=== PATIENT | male | born 1995 | race Caucasian/White ===

== ENCOUNTER 2018-01-24 22:02 | Emergency (ER) | payer OTHER ==
[2018-01-24] MEDS ORDERED: NS 2,000 ML IV ONE (22:06)
--- NOTE | 2018-01-24 22:09 | EDPHY ---
H & P Time Seen by Provider: 01/24/18 22:05 HPI/ROS: HPI CHIEF COMPLAINT: Presyncope HISTORY OF PRESENT ILLNESS: Patient 22-year-old male, is otherwise healthy with no significant medical history presents emergency room by EMS after he had almost a syncopal episode at a local restaurant. Patient reports that he went out last night drinking large amount of alcohol. He slept until noon. Did not have anything to drink or eat today. He went on a 3mi run. The patient went on a 3 mi 1, he did not eat or drink anything at all today. Around 7:00 p.m. He decided to take edible marijuana. He then went out to a restaurant and had a presyncopal episode he felt very lightheaded like he is going to pass out. He did not have a full syncopal episode. Denies chest pain or shortness of breath. Past Medical History: Denies significant medical history Past Surgical History: Denies significant surgical history Social History: [employer] student, endorses large amount of alcohol last night. Edible marijuana today. Family History: Noncontributory ROS REVIEW OF SYSTEMS: A comprehensive 10 point review of systems is otherwise negative aside from elements mentioned in the history of present illness. Exam Constitutional appears well nontoxic no acute distress, triage nursing summary reviewed, vital signs reviewed, awake/alert. Vital signs are stable. Eyes normal conjunctivae and sclera, EOMI, PERRLA. HENT normal inspection, atraumatic, moist mucus membranes, no epistaxis, neck supple/ no meningismus, no raccoon eyes. Respiratory clear to auscultation bilaterally, normal breath sounds, no respiratory distress, no wheezing. Cardiovascular rate normal, regular rhythm, no murmur, no edema, distal pulses normal. Gastrointestinal soft, non-tender, no rebound, no guarding, normal bowel sounds, no distension, no pulsatile mass. Genitourinary no CVA tenderness. Musculoskeletal no midline vertebral tenderness, full range of motion, no calf swelling, no tenderness of extremities, no meningismus, good pulses, neurovascularly intact. Skin pink, warm, & dry, no rash, skin atraumatic. Neurologic awake, alert and oriented x 3, AAOx3, moves all 4 extremities equally, motor intact, sensory intact, CN II-XII intact, normal cerebellar, normal vision, normal speech. Psychiatric normal mood/affect. Heme/Lymph/Immune no lymphadenopathy. Differential Diagnosis: Includes but is not limited to in a particular order presyncope, dehydration, electrolyte abnormality, cardiac arrhythmia. Medical Decision Making: Plan for this patient IV fluids 2 L bolus, EKG for presyncope, check electrolytes check magnesium. Re-evaluation: 2207: This patient most likely had a presyncopal episode due to the combination of large amount of alcohol last night, edible marijuana today, 3 mi run, and not eating or drinking anything. Will hydrate him here in the emergency room. Check basic blood work and EKG and re-evaluate. EKG interpretation by me on record in [employer] system. Impression time of EKG 2211, this is sinus rhythm rate of 82 no signs of acute ischemia. No signs of cardiac arrhythmia. No signs of WPW or Brug[place]. Unremarkable nonischemic EKG. 2331; re-examination at this time this patient is resting comfortably he has received 2 L of fluid here in the emergency room and feels well. He is requesting discharge. Ambulated well throughout the emergency without difficulty. Vital signs are stable. Most likely cause of presyncope was the combination of alcohol edible marijuana, going on a run not eating or drinking anything today. Source: Patient, EMS - Medical/Surgical History Hx Asthma: No Hx Chronic Respiratory Disease: No Hx Diabetes: No Hx Cardiac Disease: No Hx Renal Disease: No Hx Cirrhosis: No Hx Alcoholism: No Hx HIV/AIDS: No Hx Splenectomy or Spleen Trauma: No Other PMH: RA - Social History Smoking Status: Never smoked Constitutional: Initial Vital Signs Temperature (C) 36.9 C 01/24/18 22:02 Heart Rate 90 01/24/18 22:02 Respiratory Rate 14 01/24/18 22:02 Blood Pressure 129/69 H 01/24/18 22:02 O2 Sat (%) 99 01/24/18 22:02 O2 Delivery Mode Room Air Allergies/Adverse Reactions: No Known Allergies Allergy (Unverified 10/19/15 12:58) Home Medications: Medication Instructions Recorded NK [No Known Home Meds] 01/24/18 Medical Decision Making - Data Points Laboratory Results: Laboratory Results 01/24/18 22:08 01/24/18 22:08 01/24/18 01/24/18 22:08 22:08 WBC 10.08 10^3/uL H 10^3/uL (3.80-9.50) RBC 5.23 10^6/uL 10^6/uL (4.40-6.38) Hgb 15.5 g/dL g/dL (13.7-17.5) Hct 45.2 % % (40.0-51.0) MCV 86.4 fL fL (81.5-99.8) MCH 29.6 pg pg (27.9-34.1) MCHC 34.3 g/dL g/dL (32.4-36.7) RDW 12.6 % % (11.5-15.2) Plt Count 277 10^3/uL 10^3/uL (150-400) MPV 10.2 fL fL (8.7-11.7) Neut % (Auto) 50.0 % % (39.3-74.2) Lymph % (Auto) 36.4 % % (15.0-45.0) [place] % (Auto) 8.6 % % (4.5-13.0) Eos % (Auto) 3.7 % % (0.6-7.6) Baso % (Auto) 1.1 % % (0.3-1.7) Nucleat RBC Rel Count 0.0 % % (0.0-0.2) Absolute Neuts (auto) 5.04 10^3/uL 10^3/uL (1.70-6.50) Absolute Lymphs (auto) 3.67 10^3/uL H 10^3/uL (1.00-3.00) Absolute Monos (auto) 0.87 10^3/uL H 10^3/uL (0.30-0.80) Absolute Eos (auto) 0.37 10^3/uL 10^3/uL (0.03-0.40) Absolute Basos (auto) 0.11 10^3/uL H 10^3/uL (0.02-0.10) Absolute Nucleated RBC 0.00 10^3/uL 10^3/uL (0-0.01) Immature Gran % 0.2 % % (0.0-1.1) Immature Gran # 0.02 10^3/uL 10^3/uL (0.00-0.10) Sodium 140 mEq/L mEq/L (135-145) Potassium 3.7 mEq/L mEq/L (3.5-5.2) Chloride 102 mEq/L mEq/L (97-110) Carbon Dioxide 25 mEq/l mEq/l (22-31) Anion Gap 13 mEq/L mEq/L (8-16) BUN 12 mg/dL mg/dL (7-23) Creatinine 1.0 mg/dL mg/dL (0.7-1.3) Estimated GFR > 60 Glucose 89 mg/dL mg/dL (70-100) Calcium 9.9 mg/dL mg/dL (8.5-10.4) Magnesium 1.9 mg/dL mg/dL (1.6-2.3) Medications Given: Discontinued Medications Sodium Chloride (Ns) 2,000 mls @ 0 mls/hr IV EDNOW ONE; Wide Open PRN Reason: Protocol Stop: 01/24/18 22:07 Last Admin: 01/24/18 22:09 Dose: 2,000 mls Departure - Departure Disposition: Home, Routine, Self-Care Clinical Impression: Pre-syncope, Dehydration Condition: Good Instructions: Dehydration (ED), Near Syncope (ED) Additional Instructions: 1. Stay well-hydrated drink lots of fluids. 2. Refrain from drinking alcohol for 2-3 weeks. Refrain from edible marijuana. 3. Return emergency room if you develop a syncopal episode or worsening symptoms. Referrals: Patient,NotPresent [Unknown] - As per Instructions
[2018-01-24 22:11] LABS: PLATELET COUNT 277 10^3/uL (150-400)
[2018-01-24 22:13] VITALS: TEMP 98.4; O2SAT 99
--- NOTE | 2018-01-24 22:14 | CPEKG ---
Heart Rate: 82 RR Interval: 732 P-R Interval: 144 QRSD Interval: 102 QT Interval: 396 QTC Interval: 463 P [place]: 75 QRS [place]: 57 T Wave [place]: 37 EKG Severity - NORMAL ECG - EKG Impression: SINUS RHYTHM Electronically Signed By: David Mccoy 28-Jan-2018 16:11:58
[2018-01-24 23:30] VITALS: BP 137/70; PULSE 79; RESP 16
== END 2018-01-24 23:44 | disposition home or self-care (01) ==
LOC: EDUNIT#
DX: R55 Syncope and collapse (principal); E86.0 Dehydration; E86.9 Volume depletion, unspecified